=== PATIENT | female | born 1965 | race Caucasian/White ===

== ENCOUNTER 2019-01-28 21:54 | Emergency (ER) | payer OTHER ==
[~2019-01-28] VITALS: Ht 160 cm; Wt 59.0 kg
[2019-01-28] MEDS ORDERED: CELEXA40 MG PO (22:14)
[2019-01-28] MEDS ORDERED: VITAMIN D1000 UNI1 PO (22:15)
[2019-01-28] MEDS ORDERED: PRILOSEC OTC20 MG PO (22:15)
[2019-01-28] MEDS ORDERED: ALLEGRA ALLERG180 MG PO (22:15)
[2019-01-28] MEDS ORDERED: BUTALB-APAP-CA1 EACH PO (22:15)
[2019-01-28] MEDS ORDERED: NORCO 7.5-3251 EACH PO (23:45)
[2019-01-28 23:56] VITALS: BP 136/76
== END 2019-01-28 23:56 | disposition home or self-care (01) ==
LOC: M.ERS 21:54
DX: M25.531 Pain in right wrist (principal); I50.9 Heart failure, unspecified; G43.909 Migraine, unspecified, not intractable, without status migrainosus; Z88.1 Allergy status to other antibiotic agents; Z88.8 Allergy status to other drugs, medicaments and biological substances; Z88.5 Allergy status to narcotic agent; Z88.0 Allergy status to penicillin; Z90.49 Acquired absence of other specified parts of digestive tract; Z90.89 Acquired absence of other organs; Z98.890 Other specified postprocedural states